=== PATIENT | male | born 1980 | race Caucasian/White ===

== ENCOUNTER 2018-12-27 01:29 | Emergency (ER) | payer SELFPAY ==
--- NOTE | 2018-12-27 01:38 | ERPHSYRPT ---
- History of Present Illness Time Seen by Provider: 12/27/18 01:35 Source: patient Exam Limitations: clinical condition, intoxication Physician History: 38 y/o white male brought into ED for medical clearance for [facility]. pt lost his job and was drinking heavily. pt pulled over by police for driving under the influence. pt denies use of any other mind altering drugs or medications. pt not suicidal or homicidal. pt denies any complaint Timing/Duration: today Severity of Symptoms-Max: mild Severity of Symptoms-Current: mild Context related to: lost job Suicidal thoughts: other (none) Associated Symptoms: depressed, frustrated Previous symptoms: no prior history Allergies/Adverse Reactions: No Known Drug Allergies Allergy (Unverified 12/27/18 01:50) Home Medications: No Reportable Medications [No Reported Medications] 12/27/18 [History] - Past Medical History Neurological History: No Pertinent History ENT History: No Pertinent History Cardiac History: No Pertinent History Respiratory History: No Pertinent History Endocrine Medical History: No Pertinent History Musculoskeletal History: No Pertinent History GI Medical History: No Pertinent History History: No Pertinent History Psycho-Social History: No Pertinent History Male Reproductive Disorders: No Pertinent History - Past Surgical History Neuro Surgical History: No Pertinent History Cardiac: No Pertinent History Respiratory: No Pertinent History Gastrointestinal: No Pertinent History Genitourinary: No Pertinent History Musculoskeletal: No Pertinent History Male Surgical History: No Pertinent History - Review of Systems Constitutional: No Symptoms Eyes: No Symptoms Ears, Nose, & Throat: No Symptoms Respiratory: No Symptoms Cardiac: No Symptoms Abdominal/Gastrointestinal: No Symptoms Genitourinary Symptoms: No Symptoms Musculoskeletal: No Symptoms Skin: No Symptoms Neurological: No Symptoms Psychological: No Symptoms Endocrine: No Symptoms Hematologic/Lymphatic: No Symptoms Immunological/Allergic: No Symptoms All Other Systems: Reviewed and Negative - Nursing Vital Signs Nursing Vital Signs: Initial Vital Signs Temperature 98.9 F 12/27/18 01:34 Pulse Rate 127 H 12/27/18 01:34 Respiratory Rate 17 12/27/18 01:34 Blood Pressure 156/89 12/27/18 01:34 O2 Sat by Pulse Oximetry 96 12/27/18 01:34 Pain Scale Pain Intensity 2 - Physical Exam General Appearance: no apparent distress, alert, anxiety Eyes, Ears, Nose, Throat Exam: normal ENT inspection, moist mucous membranes Neck Exam: normal inspection, non-tender, supple, full range of motion Respiratory Exam: normal breath sounds, lungs clear, No chest tenderness, No respiratory distress Cardiovascular Exam: regular rate/rhythm, normal heart sounds, normal peripheral pulses Gastrointestinal/Abdominal Exam: soft, normal bowel sounds, No tenderness Current Suicidality: denies suicide plan Neurological Exam: alert, normal mood/affect, calm, waterproofer helper II-XII nml as tested, oriented x 3, anxious, depressed affect Appearance: appropriate appearance Behavior/Eye Contact/Speech: alert & cooperative, cooperative, good eye contact , normal speech, intoxicated appearance (mild) Thoughts/Hallucinations: normal thought pattern, no apparent hallucination Skin Exam: normal color, warm, dry SpO2 Interpretation: normal O2 Delivery: Room Air - Progress Progress: unchanged Counseled pt/family regarding: diagnosis - Departure Departure Disposition: Home Clinical Impression: Alcohol intoxication, Medical clearance for incarceration Condition: Stable Critical Care Time: No Referrals: EZIO ZHAO [Primary Care Provider] -
[2018-12-27 01:39] VITALS: BP 156/89; PULSE 127; O2SAT 96
== END 2018-12-27 02:10 | disposition home or self-care (01) ==
LOC: ED 01:29
DX: F10.129 Alcohol abuse with intoxication, unspecified (principal); Z02.89 Encounter for other administrative examinations
CPT/HCPCS: 99283

== ENCOUNTER 2019-02-24 23:28 | Emergency (ER) | payer MEDICAID ==
[2019-02-25] MEDS ORDERED: Ativan 1 MG PO ONE (00:08)
--- NOTE | 2019-02-25 00:10 | ERPHSYRPT ---
- History of Present Illness Time Seen by Provider: 02/25/19 00:01 Source: patient Exam Limitations: no limitations Patient Subjective Stated Complaint: police told this nurse that pt had SI, police stated that pt has had rough year, mother has cancer, girlfriend broke up with him, medical issues with throat and hernia, pt on paxil, pt states that the medication makes him feel jittery, police states that pt had tubing in truck to attach to exhaust, pt states that he lost brother in june and lost job , pt states that he is really depressed Triage Nursing Assessment: pt ambulated into the ER with law enforcment, pt is tearful, pt is hypertensive, pt sent SI text messages to person, pt ETOH, pt Physician History: 39-year-old male with 2 complaints: Increased stress and anxiety long-standing history of not well controlled depression and anxiety, suicide tonight by placing a tube from the muffler into his truck but he sought help with the police prior to putting himself into the vehicle. Patient still feels suicidal due to trouble in his health recently and his family/girlfriend.. He denies homicidal ideation. He did not ingest any substances tonight. He has no medical complaints at this time. He further states he has had 5-6 months of a globus sensation as if someone is pushing into his throat which denied hitting his swallowing or breathing but is uncomfortable. Causes him to cough and gag often. His primary care has told him this is likely anxiety related the the patient states it is a constant sensation on his evaluated at this point. patient further endorses nearly 30 pound unintentional weight loss over the last 5-6 months. No night sweats. No voice changes. No other recent or current medical complaints. PMH: Patient versus a history of depression Social: Patient is a long-time smoker Allergies/Adverse Reactions: No Known Drug Allergies Allergy (Unverified 12/27/18 01:50) Home Medications: Multivitamin [Multivitamins] 1 cap PO DAILY 02/24/19 [History] Paroxetine HCl 30 mg PO DAILY 02/24/19 [History] Hx Tetanus, Diphtheria Vaccination/Date Given: No Hx Influenza Vaccination/Date Given: No Hx Pneumococcal Vaccination/Date Given: No - Review of Systems Constitutional: Weight Loss, No Fever, No Chills Eyes: No Symptoms Ears, Nose, & Throat: No Symptoms, Hoarse, Other (globus sensation) Respiratory: No Cough, No Dyspnea Cardiac: No Chest Pain, No Edema, No Syncope Abdominal/Gastrointestinal: No Abdominal Pain, No Nausea, No Vomiting, No Diarrhea Genitourinary Symptoms: No Dysuria Musculoskeletal: No Back Pain, No Neck Pain Skin: No Rash Neurological: No Dizziness, No Focal Weakness, No Sensory Changes Psychological: Anxiety, Depression, Suicidal Ideations, No Homicidal Ideations, No Hallucinations Endocrine: No Symptoms All Other Systems: Reviewed and Negative - Past Medical History Pertinent Past Medical History: Yes Neurological History: No Pertinent History ENT History: No Pertinent History Cardiac History: Hypertension Respiratory History: No Pertinent History Endocrine Medical History: No Pertinent History Musculoskeletal History: No Pertinent History GI Medical History: Esophageal Disorder, Hernia History: No Pertinent History Psycho-Social History: Anxiety, Depression Male Reproductive Disorders: No Pertinent History - Past Surgical History Past Surgical History: No Neuro Surgical History: No Pertinent History Cardiac: No Pertinent History Respiratory: No Pertinent History Gastrointestinal: No Pertinent History Genitourinary: No Pertinent History Musculoskeletal: No Pertinent History Male Surgical History: No Pertinent History - Social History Smoking Status: Current every day smoker How long have you smoked: 25 yrs Exposure to second hand smoke: Yes Drug Use: none Patient Lives Alone: No - Nursing Vital Signs Nursing Vital Signs: Initial Vital Signs Temperature 98.5 F 02/24/19 23:32 Pulse Rate 123 H 02/24/19 23:32 Respiratory Rate 17 02/24/19 23:32 Blood Pressure 156/96 02/24/19 23:32 O2 Sat by Pulse Oximetry 94 L 02/24/19 23:32 Pain Scale Pain Intensity 0 - Physical Exam General Appearance: no apparent distress, alert Eye Exam: PERRL/EOMI, eyes nml inspection Ears, Nose, Throat Exam: normal ENT inspection, TMs normal, pharynx normal, moist mucous membranes Neck Exam: normal inspection, non-tender, supple, full range of motion Respiratory Exam: normal breath sounds, lungs clear, No respiratory distress Cardiovascular Exam: regular rate/rhythm, normal heart sounds, normal peripheral pulses Gastrointestinal/Abdomen Exam: soft, normal bowel sounds, No tenderness, No mass Back Exam: normal inspection, normal range of motion, No CVA tenderness, No vertebral tenderness Extremity Exam: normal inspection, normal range of motion, pelvis stable Neurologic Exam: alert, oriented x 3, cooperative, normal mood/affect, nml cerebellar function, nml station & gait, sensation nml, No motor deficits Skin Exam: normal color, warm, dry, No rash Lymphatic Exam: No adenopathy SpO2 Interpretation: normal SpO2: 94 O2 Delivery: Room Air Comments: tearful and anxious. Suicidal. 02/25/19 12:05 - CT Exams Soft Tissue Neck CT Interpretation: Negative Ordered Tests: Active Orders 24 hr Category Date Time Status Clean Catch Urine Specimen STAT Care 02/24/19 23:50 Active EKG-ER Only STAT Care 02/24/19 23:50 Active Psychiatric Consult STAT Cons 02/24/19 23:52 Active NECK WO CONTRAST [CT] Stat Exams 02/25/19 00:08 Completed ACETAMINOPHEN Stat Lab 02/24/19 23:51 Completed Alcohol [ETHYL ALCOHOL] Stat Lab 02/24/19 23:51 Completed CBC W DIFF Stat Lab 02/24/19 23:51 Completed CMP Stat Lab 02/24/19 23:51 Completed UA W/RFX UR CULTURE Stat Lab 02/24/19 23:59 Completed Urine Triage Profile Stat Lab 02/24/19 23:59 Completed Medication Summary Discontinued Medications Generic Name Dose Route Start Last Admin Trade Name Freq PRN Reason Stop Dose Admin Lorazepam 1 mg 02/25/19 00:08 02/25/19 00:20 Ativan 1 Mg PO 02/25/19 00:09 1 mg STAT ONE Administration Lorazepam Confirm 02/25/19 00:17 Ativan 1 Mg Administered 02/25/19 00:18 Dose 1 mg .ROUTE .[facility] ONE Lab/Rad Data: Laboratory Result Diagrams 02/24/19 23:51 02/24/19 23:51 Laboratory Results 02/24/19 02/24/19 02/24/19 Range/Units 23:59 23:59 23:51 WBC (4.0-10.5) K/mm3 RBC (4.1-5.6) M/mm3 Hgb (12.5-18.0) gm/dl Hct (42-50) % MCV (78-100) fl MCH (26-32) pg MCHC (32-36) g/dl RDW (11.5-14.0) % Plt Count (150-450) K/mm3 MPV (6-9.5) fl Gran % (36.0-66.0) % Eos # (Auto) (0-0.5) Absolute Lymphs (auto) (1.0-4.6) Absolute Monos (auto) (0.0-1.3) Lymphocytes % (24.0-44.0) % Monocytes % (0.0-12.0) % Eosinophils % (0.00-5.0) % Basophils % (0.0-0.4) % Absolute Granulocytes (1.4-6.9) Basophils # (0-0.4) Sodium 139 (137-145) mmol/L Potassium 3.7 (3.5-5.1) mmol/L Chloride 105 (98-107) mmol/L Carbon Dioxide 23 (22-30) mmol/L Anion Gap 14.8 (5-15) MEQ/L BUN 6 L (9-20) mg/dL Creatinine 0.89 (0.66-1.25) mg/dL Estimated GFR > 60.0 ML/MIN Glucose 92 (74-106) mg/dL Calcium 9.5 (8.4-10.2) mg/dL Total Bilirubin 0.40 (0.2-1.3) mg/dL AST 24 (17-59) U/L ALT 12 (0-50) U/L Alkaline Phosphatase 71 (38-126) U/L Serum Total Protein 7.5 (6.3-8.2) g/dL Albumin 4.3 (3.5-5.0) g/dL Urine Color COLORLESS (YELLOW) Urine Appearance CLEAR (CLEAR) Urine pH 7.0 (5-6) Ur Specific [place] 1.003 (1.005-1.025) Urine Protein NEGATIVE (Negative) Urine Ketones NEGATIVE (NEGATIVE) Urine Blood NEGATIVE (0-5) [place]/ul Urine Nitrite NEGATIVE (NEGATIVE) Urine Bilirubin NEGATIVE (NEGATIVE) Urine Urobilinogen NEGATIVE (0-1) mg/dL Ur Leukocyte Esterase NEGATIVE (NEGATIVE) Urine WBC (Auto) NONE (0-5) /HPF Urine RBC (Auto) NONE (0-2) /HPF U Epithel Cells (Auto) NONE (FEW) /HPF Urine Bacteria (Auto) NONE (NEGATIVE) /HPF Urine Culture Reflexed NO (NO) Urine Glucose NEGATIVE (NEGATIVE) mg/dL Urine Opiates Level NEGATIVE (NEGATIVE) Ur Methadone NEGATIVE (NEGATIVE) Acetaminophen < 10 L (10-30) ug/ml Urine Barbiturates NEGATIVE (NEGATIVE) Ur Phencyclidine (PCP) NEGATIVE (NEGATIVE) Urine Amphetamine NEGATIVE (NEGATIVE) U Benzodiazepine Level NEGATIVE (NEGATIVE) Urine Cocaine NEGATIVE (NEGATIVE) Urine Marijuana (THC) NEGATIVE (NEGATIVE) Ethyl Alcohol 62 H (0-10) mg/dL 02/24/19 Range/Units 23:51 WBC 10.4 (4.0-10.5) K/mm3 RBC 5.28 (4.1-5.6) M/mm3 Hgb 16.8 (12.5-18.0) gm/dl Hct 48.5 (42-50) % MCV 91.9 (78-100) fl MCH 31.8 (26-32) pg MCHC 34.6 (32-36) g/dl RDW 13.6 (11.5-14.0) % Plt Count 285 (150-450) K/mm3 MPV 8.8 (6-9.5) fl Gran % 73.9 H (36.0-66.0) % Eos # (Auto) 0.07 (0-0.5) Absolute Lymphs (auto) 2.07 (1.0-4.6) Absolute Monos (auto) 0.53 (0.0-1.3) Lymphocytes % 19.9 L (24.0-44.0) % Monocytes % 5.1 (0.0-12.0) % Eosinophils % 0.7 (0.00-5.0) % Basophils % 0.4 (0.0-0.4) % Absolute Granulocytes 7.67 H (1.4-6.9) Basophils # 0.04 (0-0.4) Sodium (137-145) mmol/L Potassium (3.5-5.1) mmol/L Chloride (98-107) mmol/L Carbon Dioxide (22-30) mmol/L Anion Gap (5-15) MEQ/L BUN (9-20) mg/dL Creatinine (0.66-1.25) mg/dL Estimated GFR ML/MIN Glucose (74-106) mg/dL Calcium (8.4-10.2) mg/dL Total Bilirubin (0.2-1.3) mg/dL AST (17-59) U/L ALT (0-50) U/L Alkaline Phosphatase (38-126) U/L Serum Total Protein (6.3-8.2) g/dL Albumin (3.5-5.0) g/dL Urine Color (YELLOW) Urine Appearance (CLEAR) Urine pH (5-6) Ur Specific [place] (1.005-1.025) Urine Protein (Negative) Urine Ketones (NEGATIVE) Urine Blood (0-5) [place]/ul Urine Nitrite (NEGATIVE) Urine Bilirubin (NEGATIVE) Urine Urobilinogen (0-1) mg/dL Ur Leukocyte Esterase (NEGATIVE) Urine WBC (Auto) (0-5) /HPF Urine RBC (Auto) (0-2) /HPF U Epithel Cells (Auto) (FEW) /HPF Urine Bacteria (Auto) (NEGATIVE) /HPF Urine Culture Reflexed (NO) Urine Glucose (NEGATIVE) mg/dL Urine Opiates Level (NEGATIVE) Ur Methadone (NEGATIVE) Acetaminophen (10-30) ug/ml Urine Barbiturates (NEGATIVE) Ur Phencyclidine (PCP) (NEGATIVE) Urine Amphetamine (NEGATIVE) U Benzodiazepine Level (NEGATIVE) Urine Cocaine (NEGATIVE) Urine Marijuana (THC) (NEGATIVE) Ethyl Alcohol (0-10) mg/dL - Progress Progress: unchanged Progress Note: CT obtained history of weight loss and globus sensation in a long-time smoker, no evidence of mass/malignancy or other emergent findings. Patient remained suicidal/depressed feeling better after Ativan. Will be placed in a psychiatric facility. No evidence of psychosis or evidence of ingestion in regard to his attempt earlier. Patient remained hemodynamically stable during his time in the emergency department. 02/25/19 12:06 - Departure Departure Disposition: Transfer Clinical Impression: Suicidal thoughts, Anxiety Condition: Stable Critical Care Time: No Referrals: EZIO ZHAO [Primary Care Provider] -
[2019-02-25] MEDS ORDERED: Ativan 1 MG ONE (00:17)
[2019-02-25 00:52] LABS: Appearance CLEAR (CLEAR); Bilirubin NEGATIVE (NEGATIVE); Blood NEGATIVE Ery/ul (0-5); Glucose NEGATIVE (NEGATIVE); Ketones NEGATIVE (NEGATIVE); Leukocyte Esterase NEGATIVE (NEGATIVE); Nitrite NEGATIVE (NEGATIVE); Protein,Urine Dip NEGATIVE (Negative); Specific Gravity 1.003 (1.005-1.025); Urobilinogen NEGATIVE mg/dL (0-1)
[2019-02-25 01:06] LABS: Amphetamine,Urine NEGATIVE (NEGATIVE); Barbiturate,Urine NEGATIVE (NEGATIVE); Benzodiazepine,Urine NEGATIVE (NEGATIVE); Cocaine,Urine NEGATIVE (NEGATIVE); Methadone,Urine NEGATIVE (NEGATIVE); Opiate,Urine NEGATIVE (NEGATIVE); PCP,Urine NEGATIVE (NEGATIVE); THC,Urine NEGATIVE (NEGATIVE)
[2019-02-25 01:10] LABS: Absolute Neutrophil Ct (ANC) 7.67 (1.4-6.9); BASOPHIL % 0.4 % (0.0-0.4); Basophil (Absolute #) 0.04 (0-0.4); Eosinophil % 0.7 % (0.00-5.0); Eosinophil (Absolute #) 0.07 (0-0.5); Hematocrit 48.5 % (42-50); Hemoglobin 16.8 gm/dl (12.5-18.0); Lymphocyte (Absolute #) 2.07 (1.0-4.6); Lymphocytes % 19.9 % (24.0-44.0); Mean Cell Volume 91.9 fl (78-100); Mean Corpuscular Hemoglobin 31.8 pg (26-32); Mean Corpuscular Hgb Concent. 34.6 g/dl (32-36); Mean Platelet Volume 8.8 fl (6-9.5); Monocyte (Absolute #) 0.53 (0.0-1.3); Monocytes % 5.1 % (0.0-12.0); Neutrophil % 73.9 % (36.0-66.0); Platelet Count 285 K/mm3 (150-450); Red Blood Count 5.28 M/mm3 (4.1-5.6); Red Cell Distribution Width 13.6 % (11.5-14.0); White Blood Count 10.4 K/mm3 (4.0-10.5)
[2019-02-25 01:27] LABS: ALBUMIN 4.3 g/dL (3.5-5.0); ALKALINE PHOSPHATASE 71 U/L (38-126); ANION GAP 14.8 MEQ/L (5-15); BLOOD UREA NITROGEN 6 mg/dL (9-20); CHLORIDE 105 mmol/L (98-107); Calcium 9.5 mg/dL (8.4-10.2); Carbon Dioxide 23 mmol/L (22-30); Creatinine 1 0.89 mg/dL (0.66-1.25); ETHYL ALCOHOL 62 mg/dL (0-10); Glucose 92 mg/dL (74-106); Potassium 3.7 mmol/L (3.5-5.1); SGOT/AST 24 U/L (17-59); SGPT/ALT 12 U/L (0-50); SODIUM 139 mmol/L (137-145); Total Protein 7.5 g/dL (6.3-8.2)
[2019-02-25 01:28] LABS: ACETAMINOPHEN < 10 ug/ml (10-30)
[2019-02-25 04:54] VITALS: BP 138/95; PULSE 98
--- NOTE | 2019-02-25 09:44 | XRAY ---
Indication: Dysphasia/difficulty swallowing 5-6 months. Globus sensation in throat. Multiple contiguous axial images obtained through the neck without contrast as ordered. Comparison: None Supra and infraglottic airway appears widely patent. Normal epiglottis. Major arteries and veins are normal in course and caliber. Thyroid gland homogeneous. Small subcentimeter cervical lymph nodes bilaterally, none pathologically enlarged. Parotid and submandibular glands are bilaterally symmetric. Cervical spine intact with minimal C5-C7 degenerative changes. Base of the brain and lung apices are unremarkable. Impression: Minimal C5-C7 degenerative changes. Negative CT neck without contrast exam. Comment: Preliminary interpretation was made by [facility]. No critical discrepancy. CTDI 18.24
[2019-02-25 12:09] VITALS: O2SAT 94
== END 2019-02-25 04:55 | disposition short-term general hospital (02) ==
LOC: ED 23:28
DX: R45.851 Suicidal ideations (principal); F41.9 Anxiety disorder, unspecified
CPT/HCPCS: 36415; 70490; 80053; 80307; 81001; 85025; 93005; 99285; G0481; A9270-GY; G0480

== ENCOUNTER 2019-05-04 12:20 | Day surgery (SDC) | payer MEDICAID, OTHER ==
--- NOTE | 2019-05-04 09:08 | HP ---
DATE OF SURGERY: 05/04/2019 HISTORY OF PRESENT ILLNESS: The patient is a 39 year-old with epigastric ventral cephalad to naval area hernia, past couple of years increasing in size, increasing aches. It was felt he had some incarcerated preperitoneal fat or omentum. I feel he would benefit from repair given frequent symptoms and increase in size. PAST MEDICAL HISTORY: Includes anxiety. PAST SURGICAL HISTORY: He denied any prior abdominal surgery. MEDICATIONS: Mupirocin topical ointment. Melatonin. Paxil. Seroquel. ALLERGIES: NKDA. FAMILY HISTORY: Colon cancer, heart disease. SOCIAL HISTORY: One and a half pack per day smoker, does drink some alcohol but denies abuse. REVIEW OF SYSTEMS: Fourteen systems reviewed per admission assessment. No chest pain or palpitations other systems negative or noncontributory as above and per preadmission questionnaire. PHYSICAL EXAMINATION: GENERAL: No acute distress. HEENT: Sclerae nonicteric. NECK: No JVD. CHEST: Equal excursion, nonlabored breathing. CVS: Regular rate and rhythm. ABDOMEN: Soft. His hernia appears to be in the lower epigastrium and does not appear to be a simple umbilical hernia. It appears to be an incarcerated epigastric hernia with likely some preperitoneal omental fat. No peritoneal signs. EXTREMITIES: No significant edema. NEURO: Alert, oriented, moving extremities symmetrically. No gross motor deficits noted. IMPRESSION: Incarcerated epigastric ventral hernia. I feel the patient will benefit from repair. 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 He understands and accepts these risks of use of the mesh to decrease the overall risk of recurrence and ending up back in the operating room. There is a small risk with mesh but generally the benefits outweigh the risk. He understands all the above. General risk of anesthesia, deep venous thrombosis, pulmonary embolism, pneumonia but not limited to, as well as risk of hernia recurrence, possibility of no improvement in the current aches and pains, possibly new aches and pains from the surgery itself. He understands and agrees to the planned procedure and will proceed with laparoscopic repair of incarcerated ventral hernia with mesh possible open. Depending on perioperative pain whether the patient will be able to be discharged home or need to stay.
[~2019-05-04 12:20] MED LIST: CEFAZOLIN 2 GM-D5W BAG** 2 GM/50 ML ML IV ONE; Lactated Ringers 1,000 ML IV ONE; Lactated Ringers 1,000 ML IV SCH; Sensorcaine 0.25% 10 ML ONE
[2019-05-04] MEDS ORDERED: CEFAZOLIN 2 GM-D5W BAG** 2 GM/50 ML ML IV ONE (12:29)
[2019-05-04] MEDS ORDERED: Lactated Ringers 1,000 ML IV ONE ×2 (12:29→14:56)
[2019-05-04] MEDS ORDERED: SUBLIMAZE 100 MCG/2 ML ONE ×2 (13:37→15:35)
[2019-05-04] MEDS ORDERED: Zemuron 100 MG/10 ML ONE ×2 (13:37→14:56)
[2019-05-04] MEDS ORDERED: DIPRIVAN 200 MG/20 ML IV ONE (13:37)
[2019-05-04] MEDS ORDERED: Quelicin Fliptop 200 MG/10 ML ONE (13:37)
[2019-05-04] MEDS ORDERED: TORAdol 30 mg Injection ONE (14:25)
[2019-05-04] MEDS ORDERED: BRIDION 200MG/2ML IV ONE (14:25)
[2019-05-04] MEDS ORDERED: Zofran 4 MG/2 ML VIAL ONE (14:25)
[2019-05-04] MEDS ORDERED: Decadron 4 MG INJ ONE ×2 (14:25→14:57)
[2019-05-04] MEDS ORDERED: Ephedrine Sulfate 50 MG/ML ONE (14:30)
[2019-05-04] MEDS ORDERED: Xylocaine-Mpf 2% 5 Ml Vial ONE (14:57)
[2019-05-04] MEDS ORDERED: Naropin 0.5% 30 ML VIAL ONE (14:57)
[2019-05-04] MEDS ORDERED: DILAUDID 2 MG INJECTION ONE (15:20)
[2019-05-04 15:24] LABS: Appearance CLEAR (CLEAR); Bacteria RARE /HPF (NEGATIVE); Bilirubin NEGATIVE (NEGATIVE); Blood NEGATIVE Ery/ul (0-5); Epithelial Cells FEW /HPF (FEW); Glucose NEGATIVE (NEGATIVE); Ketones NEGATIVE (NEGATIVE); Leukocyte Esterase NEGATIVE (NEGATIVE); Mucus SLIGHT /HPF (NEGATIVE); Nitrite NEGATIVE (NEGATIVE); Protein,Urine Dip NEGATIVE (Negative); Specific Gravity 1.014 (1.005-1.025); Urobilinogen NEGATIVE mg/dL (0-1)
[2019-05-04 16:36] VITALS: BP 150/89; PULSE 97; O2SAT 95
--- NOTE | 2019-05-05 12:25 | OP ---
SURGERY DATE/TIME: 05/04/2019 1359 PREOPERATIVE DIAGNOSIS: Lower epigastric incarcerated ventral hernia symptomatic. POSTOPERATIVE DIAGNOSIS: Lower epigastric incarcerated ventral hernia symptomatic. PROCEDURE: Laparoscopic repair of incarcerated ventral hernia with mesh. SURGEON: Dr. Alessio Pabon. ANESTHESIA: General. ESTIMATED BLOOD LOSS: Minimal. INDICATIONS: As noted above. Risks and benefits explained in detail and not limited to and consent obtained. DESCRIPTION OF PROCEDURE AND FINDINGS: The patient is taken to the operating room. General anesthesia induced. The site was confirmed with the patient in the preoperative holding area. His abdomen was prepped and draped in usual sterile fashion after official time out and no disagreement with planned procedure. A transverse incision made supraumbilical area. Fascia grasped pulled upward. Veress needle inserted and tested with saline. Pneumoperitoneum accomplished. Opening pressure 0-15. Once this was accomplished a 5 mm bladeless port and camera were inserted without difficulty in the left upper quadrant. A 5 mm right mid abdomen port, 5 mm left lower quadrant port and later a right mid 5 mm port was placed. There was no evidence of any intra-abdominal injury secondary to trocar insertion. The patient had a lot intra-abdominal fat. Carefully incising the preperitoneal fat on peritoneal plane, dissection carried in the preperitoneal space superior to the hernia defect and inferior. Careful dissection was accomplished slowly and carefully the large amount of preperitoneal fat that was incarcerated up in this hernia was slowly carefully reduced away from the patient's subcutaneous tissue and skin area this took some time but he had two ventral hernias adjacent to each other low epigastrium and a little smaller one down by the naval. It was felt these should be repaired en bloc together. The site was carefully marked size agustin felt to be 8 cm. Ventralex XT was the most appropriate size with adequate overlap over the defect minimizing excess mesh, risk of mesh aches and pains. Four quadrant stay sutures were placed with 0 Ethibond. 0 Vicryl placed in the middle. The strap had been removed. At this point the small lower epigastrium incision the suture passer is used to place 0 Ethibond transfascial suture this followed by placing a port through the center of the defect which allowed the mesh to be rolled and passed down easily without difficulty. The port was removed. The fascial edges were brought back together with 0 PDS in a tension-free manner. Once this was accomplished the Ventral XT 8 mesh was carefully pulled up in the center of the defect with [address]. This is centered and the four quadrant the four separate little stab wounds the 0 Ethibond was transfixed transfascially with the aid of suture passer. The sutures were then pulled through the fascia and tied. The mesh was nice and flat fashion. At this point the capture tacker was used to tack circumferentially around about 1 cm apart to minimize risk of seroma formation, two extra tacks were placed centrally closer to the fascial defect. The edges of the mesh lying nice and flat in tension-free fashion. Good hemostasis noted. It should be noted that all the mesh measuring placement of transfascial sutures of mesh placed and this was all done with pressure having been turned down to 8 to minimize distortion of the abdominal wall. At this point the preperitoneal fat pad had been allowed to fall back up underneath the mesh isolating it further away from the viscera. Once this is accomplished the pneumoperitoneum decompressed. Ports removed. Skin incisions closed with 4-0 Vicryl. Steri-Strips and sterile dressing applied. Anesthesia planned doing a tap blocks at the end of the procedure. Give an abdominal binder and sterile dressing. Some 0.25% Marcaine local had been injected along the skin incision. The patient tolerated the procedure well. There were no immediate complications. Findings were discussed with the family out in the waiting area. He will be transferred to the recovery room in stable condition. Given the size of the mesh he likely will be able to go home. If he is safe for pain control let us know otherwise avoid heavy lifting for the next six weeks. Discharged home in good condition to follow up in the office in a week. Ice pack, ibuprofen, as well as [place] script PRN pain. Diet as tolerated.
== END 2019-05-04 16:50 | disposition home or self-care (01) ==
LOC: SDC 12:20
PROVIDERS: ATTEND Surgery
DX: K43.6 Other and unspecified ventral hernia with obstruction, without gangrene (principal)
CPT/HCPCS: 64488; 76937; 76942; 81001; 87086; J0330; J0690; J1100; J1170; J1885; J2405; J2704; J2795; J3010; L0625

== ENCOUNTER 2020-05-09 12:18 | Emergency (ER) | payer OTHER ==
[2020-05-09] MEDS ORDERED: XYLOCAINE 1% HCL 20 ML MDV ONE (12:26)
[2020-05-09] MEDS ORDERED: Sodium Chloride 0.9% 100 ML IVPB 0 ML IV ONE (12:30)
[2020-05-09] MEDS ORDERED: TERBUTALINE 5 MG PO ONE (12:50)
--- NOTE | 2020-05-09 12:50 | ERPHSYRPT ---
- History of Present Illness Time Seen by Provider: 05/09/20 12:45 Exam Limitations: no limitations Patient Subjective Stated Complaint: pt here for an erection since 0810 this morning , Triage Nursing Assessment: pt alert, resp easy,face mask in place, skin w/d/p, has erection, deneis any penile drainage, Physician History: The patient is a 40-year-old male who presents with a chief complaint of a priapism. He reportedly awoke around 8:00 this morning with the priapism and he has not had detumescence since. He denies any difficulty urinating and was waiting that at home but when the priapism would not resolve he decided to come to the emergency department for further evaluation and management. He denies prior episodes of priapism, hematologic malignancy, any recent trauma, fever or chills. He denies using any erectile dysfunction drugs. Of note, the patient does have a history of anxiety and depression and reportedly has started some antianxiety and depression medications over the last 2 to 3 months. It appears she was prescribed trazodone 100 mg nightly on April 07, 2019. It also. He was prescribed quetiapine 100 mg nightly on April 07 2019. He was prescribed Ingrezza about a month ago which he has been taking daily. Allergies/Adverse Reactions: No Known Drug Allergies Allergy (Verified 05/04/19 12:46) Home Medications: Melatonin 20 mg PO HS 04/07/19 [History] Quetiapine Fumarate 100 mg [Seroquel 100 MG] 100 mg PO HS 04/07/19 [History] Trazodone HCl 100 mg PO HS 04/07/19 [History] Benztropine Mesylate 1 ea DAILY 05/09/20 [History] Olopatadine HCl Ophth [Patanol 1% OPHTHALMIC] 5 ml OP DAILY 05/09/20 [History] Propranolol HCl 1 ea DAILY 05/09/20 [History] Valbenazine Tosylate [Ingrezza] 1 ea DAILY 05/09/20 [History] Valbenazine Tosylate [Ingrezza] 1 ea DAILY 05/09/20 [History] Hx Tetanus, Diphtheria Vaccination/Date Given: No Hx Influenza Vaccination/Date Given: No Hx Pneumococcal Vaccination/Date Given: No Immunizations Up to Date: Yes Travel Risk - International Travel Have you traveled outside of the country in past 3 weeks: No - Coronavirus Screening Are you exhibiting any of the following symptoms?: No Close contact with a COVID-19 positive Pt in past 14-21 Days: No - Review of Systems Genitourinary Symptoms: Other (Priapism) - Past Medical History Pertinent Past Medical History: Yes Neurological History: No Pertinent History ENT History: No Pertinent History Cardiac History: No Pertinent History Respiratory History: No Pertinent History Endocrine Medical History: No Pertinent History Musculoskeletal History: No Pertinent History GI Medical History: Esophageal Disorder History: No Pertinent History Psycho-Social History: Anxiety, Depression Male Reproductive Disorders: No Pertinent History Other Medical History: states is seen for counseling center manager at the [facility] for depression - Past Surgical History Past Surgical History: No Neuro Surgical History: No Pertinent History Cardiac: No Pertinent History Respiratory: No Pertinent History Gastrointestinal: No Pertinent History Genitourinary: No Pertinent History Musculoskeletal: No Pertinent History Male Surgical History: No Pertinent History Other Surgical History: states " had tubes in my ears as a young child" - Social History Smoking Status: Current every day smoker How long have you smoked: 25 yrs Exposure to second hand smoke: Yes Drug Use: none Patient Lives Alone: No - Nursing Vital Signs Nursing Vital Signs: Initial Vital Signs Temperature 97.6 F 05/09/20 12:22 Pulse Rate 102 H 05/09/20 12:22 Respiratory Rate 18 05/09/20 12:22 Blood Pressure 172/112 05/09/20 12:22 O2 Sat by Pulse Oximetry 97 05/09/20 12:22 Pain Scale Pain Intensity 9 - Physical Exam General Appearance: no apparent distress, alert Eye Exam: PERRL/EOMI Neck Exam: normal inspection Respiratory Exam: normal breath sounds Cardiovascular Exam: regular rate/rhythm, normal heart sounds, normal peripheral pulses, capillary refill <2 sec, No murmur, No friction rub, No gallop Gastrointestinal/Abdomen Exam: soft, No tenderness, No distention, No mass, No guarding Male Genitalia Exam: priapism, No hernia, No testicular tenderness, No testicular mass, No penile lesion, No penile discharge Rectal Exam: deferred Back Exam: normal inspection Extremity Exam: normal inspection Neurologic Exam: alert, oriented x 3, normal mood/affect Skin Exam: normal color, warm, dry, No rash, No petechiae SpO2 Interpretation: normal Procedures - Additional Procedures Progress: Dorsal penile block Priapism management - Course Nursing assessment & vital signs reviewed: Yes Ordered Tests: Medication Summary Discontinued Medications Generic Name Dose Route Start Last Admin Trade Name Zaynab PRN Reason Stop Dose Admin Sodium Chloride Confirm 05/09/20 12:30 Sodium Chloride 0.9% 100 Ml Ivpb Administered 05/09/20 12:31 Dose 100 mls @ ud IV .STK-MED ONE Lidocaine HCl Confirm 05/09/20 12:26 Xylocaine 1% Hcl 20 Ml Mdv Administered 05/09/20 12:27 Dose 10 ml .ROUTE .STK-MED ONE Terbutaline Sulfate 5 mg 05/09/20 12:50 05/09/20 13:15 Brethine 5 Mg PO 05/09/20 12:51 5 mg STAT ONE Administration - Progress Progress: improved Progress Note: 05/09/20 13:25 Dorsal penile block was performed using 2 mL injected to the 10:00 and 2:00 of the base of the penile shaft in a standard fashion using aseptic technique. The patient also already received oral terbutaline, 5 mg and if this does not work in the next 30 minutes we will go ahead and start injecting aliquots of phenylephrine to hopefully achieve detumescence 05/09/20 13:42 The patient was reassessed to find that his priapism has not resolved however he achieved adequate anesthesia with the dorsal penile block. 1 ml of Diluted phenylephrine ([id number]) injected at the 2:00 region in an attempt to obtain detumescence using the minimal invasive technique. I reassess at 2:00 pm and repeat 2 additional times if needed before proceeding to aspiration and irrigation with phenylephrine. 05/09/20 14:10 A second aliquot of phenylephrine has been administered to the 10:00 region of the base of the penis. Reassessed at 230 to see if he is achieved detumescence but this time I decided to go ahead with aspiration and injection of phenylephrine has the next step. 05/09/20 14:30 The patient is reassessed and detumescence was achieved. I am currently checking a nurse to wrap the patient's penis with cleaning and will consult urology. 05/09/20 14:42 Urology is being called for consulted now. 05/09/20 14:[address] Ram, urologist, and discussed the case with him. He agreed with management and f/u has been scheduled for 05/13/20 at 1:30 pm 05/09/20 17:09 Discussed with : Other (Yo) Counseled pt/family regarding: lab results, diagnosis, need for follow-up - Departure Departure Disposition: Home Clinical Impression: Priapism, drug-induced Condition: Stable Critical Care Time: No Referrals: FRANK RAM [COURTESY STAFF] - Instructions: Priapism Additional Instructions: Please follow-up with Dr. Ram, urologist, this coming 05/13/20 at 1:30 pm. Please refrain from taking your ingrezza and seroquel (quetiapine) until told otherwise by the urologist or your PCP/counselor.
[2020-05-09 15:01] VITALS: BP 166/101; PULSE 115; O2SAT 95
== END 2020-05-09 15:03 | disposition home or self-care (01) ==
LOC: ED 12:18
DX: N48.33 Priapism, drug-induced (principal)
CPT/HCPCS: 99283; A9270-GY

== ENCOUNTER 2020-07-05 05:46 | Day surgery (SDC) | payer OTHER ==
[2020-07-05] MEDS ORDERED: Lactated Ringers 1,000 ML IV SCH (06:30)
[2020-07-05] MEDS ORDERED: DIPRIVAN 200 MG/20 ML IV ONE ×2 (07:32→07:51)
[2020-07-05] MEDS ORDERED: Xylocaine-Mpf 2% 5 Ml Vial ONE (07:32)
[2020-07-05] MEDS ORDERED: Lactated Ringers 1,000 ML IV ONE (08:08)
[2020-07-05 08:44] VITALS: O2SAT 99
[2020-07-05 08:51] VITALS: BP 117/79; PULSE 82
--- NOTE | 2020-07-05 10:55 | OP ---
SURGERY DATE/TIME: 07/05/2020 0731 PREOPERATIVE DIAGNOSIS: Rectal bleeding and mother with history of colon cancer. POSTOPERATIVE DIAGNOSIS: Small polyps in the transverse colon. PROCEDURE: Colonoscopy with cold forceps biopsy. SURGEON: Dr. Acevedo. ANESTHESIA: MAC. Medications given by anesthesia department. HISTORY: The patient is a 40 year-old white male patient who reports he has been having problems with rectal bleeding off and on for the past two years. The patient has a mother who had colon cancer and is felt to need to have endoscopic evaluation. The patient was appraised of the risks of the procedure including the risk of perforation, phlebitis, untoward reaction to medication, bleeding and missed lesions. The patient verbalized his understanding and desired to have the procedure performed. DESCRIPTION OF PROCEDURE: The patient was given the medications by the anesthesia department. He had continuous pulse oximetry, ECG monitoring, intermittent blood pressure monitoring and tidal CO2 monitoring during the examination. He was placed in the left lateral decubitus position. A digital rectal examination was performed and revealed normal anal sphincter tone, no masses. Internal hemorrhoids were noted. The prostate was felt to be normal. The flexible Olympus pediatric colonoscope was used to intubate the rectum. A view of the colon was developed sequentially to the cecum including a distance into the terminal ileum. Biopsies were obtained in the terminal ileum to rule out inflammatory bowel disease. There were also noted to be two small polyps in the transverse colon and these were biopsied and destroyed using cold biopsy technique to destroy the lesions. Upon insertion and withdrawal, including a retroflex view in the rectum, there was otherwise noted internal hemorrhoids which were not actively bleeding but no other mucosal lesions being encountered the scope was removed from the patient who tolerated the procedure well and sent back to OP recovery in good condition. The prep was noted to be good.
== END 2020-07-05 08:50 | disposition home or self-care (01) ==
LOC: SDC 05:46
PROVIDERS: ATTEND Family Medicine
DX: D12.3 Benign neoplasm of transverse colon (principal); Z80.0 Family history of malignant neoplasm of digestive organs; K64.8 Other hemorrhoids; K62.5 Hemorrhage of anus and rectum
CPT/HCPCS: J2704

== ENCOUNTER 2020-08-22 09:57 | Emergency (ER) | payer OTHER ==
[2020-08-22] MEDS ORDERED: Ketamine HCl 50 MG/ML IV ONE (09:58)
[2020-08-22] MEDS ORDERED: Zemuron 100 MG/10 ML IV ONE (09:58)
--- NOTE | 2020-08-22 10:11 | ERPHSYRPT ---
- History of Present Illness Time Seen by Provider: 08/22/20 10:00 Source: EMS Exam Limitations: intoxication Physician History: Patient is a 40-year-old male presents to our ED via EMS for evaluation of altered mental status. Patient lives alone. Patient's mother had not heard from him and several days. She went to check up on him this morning and found him unresponsive. There were empty alcohol containers and empty pill bottles near patient. Per report patient has a history of suicide attempt in the past. Patient has been feeling somewhat depressed. Patient unable to provide to this HPI. Patient breathing spontaneously. Patient has dried blood around his mouth. Mildly dry oral mucous membranes. Patient is sleeping and snoring. Patient appears to be protecting his airway. No signs of trauma. Patient is currently mildly hypothermic. Timing/Duration: today Severity: moderate Modifying Factors: Improves With: nothing Allergies/Adverse Reactions: No Known Drug Allergies Allergy (Verified 08/22/20 10:20) Home Medications: Valbenazine Tosylate [Ingrezza] 1 ea PO DAILY 05/09/20 [History] Fluoxetine HCl 20 mg [Prozac 20 MG] 1 ea DAILY 08/22/20 [History] Ziprasidone HCl [Geodon] 1 ea DAILY 08/22/20 [History] Hx Tetanus, Diphtheria Vaccination/Date Given: No Hx Influenza Vaccination/Date Given: No Hx Pneumococcal Vaccination/Date Given: No - Review of Systems All Other Systems: Unable due to condition - Past Medical History Pertinent Past Medical History: Yes Neurological History: No Pertinent History ENT History: No Pertinent History Cardiac History: Hypertension Respiratory History: No Pertinent History Endocrine Medical History: No Pertinent History Musculoskeletal History: No Pertinent History GI Medical History: Esophageal Disorder History: No Pertinent History Psycho-Social History: Anxiety, Depression Male Reproductive Disorders: No Pertinent History Other Medical History: states is seen for safety counselor at the [facility] for depression - Past Surgical History Past Surgical History: Yes Neuro Surgical History: No Pertinent History Cardiac: No Pertinent History Respiratory: No Pertinent History Gastrointestinal: Hernia Repair Genitourinary: No Pertinent History Musculoskeletal: No Pertinent History Male Surgical History: No Pertinent History Other Surgical History: states " had tubes in my ears as a young child" - Social History Smoking Status: Current every day smoker How long have you smoked: 25 yrs Exposure to second hand smoke: Yes Drug Use: none Patient Lives Alone: No - Nursing Vital Signs Nursing Vital Signs: Initial Vital Signs Temperature 95.4 F 08/22/20 09:58 Pulse Rate 121 H 08/22/20 09:58 Respiratory Rate 16 08/22/20 09:58 Blood Pressure 156/91 08/22/20 09:58 O2 Sat by Pulse Oximetry 96 08/22/20 09:58 Pain Scale Pain Intensity 0 - Physical Exam General Appearance: other (Patient lying in bed breathing spontaneously. Dried blood around his mouth. Patient responds to sternal rub. He appears to be protecting his airway.) Eye Exam: PERRL/EOMI Ears, Nose, Throat Exam: normal ENT inspection, pharynx normal, dry mucous m embranes, other (Dry appearing mucous membranes.) Neck Exam: normal inspection (No obvious signs of trauma. No contusions or abrasions. No lacerations.) Respiratory Exam: lungs clear, airway intact, No chest tenderness, No respiratory distress, No accessory muscle use, No wheezing, No stridor Cardiovascular Exam: normal heart sounds (Sinus tachycardia.), normal peripheral pulses, other Gastrointestinal/Abdomen Exam: soft, No tenderness, No distention, No guarding, No ecchymosis, No hepatomegaly, No organomegaly Male Genitalia Exam: normal genitalia Back Exam: normal inspection Extremity Exam: normal inspection, normal range of motion, pelvis stable Neurologic Exam: uncooperative, intoxicated appearance, other (Patient appears to be intoxicated. He is sleeping but responds to tactile stimulation.), No facial droop SpO2 Interpretation: normal O2 Delivery: Room Air Procedures - Intubation Intubation Indications: respiratory distress Tube Size (cm): 8.0 Medications: Ketamine, Rocuronium C-Spine: maintained Endotracheal Tube Confirmation: bilateral breath sounds, positive end tidal CO2, good rise & fall of chest, stable or inc of O2 sat Intubation Complications: no complications Performed By: ED Physician Post Intubation Xray: Yes Progress/X-ray Impression: 08/22/20 12:54 tube in good position. no pneumothorax. - Course Nursing assessment & vital signs reviewed: Yes EKG Interpreted by Me: RATE (120), Sinus Rhythm, NORMAL AXIS, NORMAL INTERVALS - Radiology Exams Chest X-ray Interpretation: Teleradiologist Report (Normal heart lungs and bony thorax. Incidental calcified granulomas) - CT Exams Head CT Interpretation: Tele-radiologist Report (Motion artifact. No acute intrac ranial abnormality observed) Cervical Spine CT Interpretation: Tele-radiologist Report (Artifact, no fractures or subluxations. C5-C7 degenerative arthritis) Ordered Tests: Active Orders 24 hr Category Date Time Status EKG-ER Only STAT Care 08/22/20 10:03 Active IV Insertion STAT Care 08/22/20 10:03 Active CERVICAL SPINE WO CONTRAST [CT] Stat Exams 08/22/20 10:02 Completed CHEST 1 VIEW (PORTABLE) Stat Exams 08/22/20 10:03 Completed CHEST 1 VIEW (PORTABLE) Stat Exams 08/22/20 12:33 Completed CHEST 1 VIEW (PORTABLE) Stat Exams 08/22/20 12:39 Completed HEAD WITHOUT CONTRAST [CT] Stat Exams 08/22/20 10:01 Completed ABG [ARTERIAL BLOOD GASES] Stat Lab 08/22/20 11:15 Completed ABG [ARTERIAL BLOOD GASES] Urgent Lab 08/22/20 13:18 Completed ACETAMINOPHEN Stat Lab 08/22/20 10:17 Completed CBC W DIFF Stat Lab 08/22/20 10:17 Completed CK (IN-HOUSE) [CK-Creatinine Phosphokinase] Stat Lab 08/22/20 10:44 Completed CMP Routine Lab 08/22/20 10:17 Completed CULTURE,URINE Stat Lab 08/22/20 10:17 Received ETHYL ALCOHOL Stat Lab 08/22/20 10:17 Completed LIPASE Routine Lab 08/22/20 10:17 Completed Lactic Acid Stat Lab 08/22/20 10:17 Completed Lactic Acid Urgent Lab 08/22/20 11:25 Completed PROTIME WITH INR Stat Lab 08/22/20 10:17 Completed SALICYLATE Stat Lab 08/22/20 10:17 Completed TROPONIN Q3H Lab 08/22/20 10:17 Completed TROPONIN Q3H Lab 08/22/20 13:11 Completed TROPONIN Q3H Lab 08/22/20 16:15 Ordered TROPONIN Q3H Lab 08/22/20 19:15 Ordered TROPONIN Q3H Lab 08/22/20 22:15 Ordered UA W/RFX UR CULTURE Stat Lab 08/22/20 10:17 Completed Urine Triage Profile Stat Lab 08/22/20 10:17 Completed Intubate Patient STAT RT 08/22/20 12:49 Active Vent Settings [Ventilator Management] STAT RT 08/22/20 12:49 Active Medication Summary Generic Name Dose Route Start Last Admin Trade Name Freq PRN Reason Stop Dose Admin Sodium Chloride 1,000 mls @ 100 mls/hr 08/22/20 10:15 08/22/20 10:46 Sodium Chloride 0.9% 1000 Ml IV 09/21/20 10:14 100 mls/hr .Q10H PASTOR Administration Discontinued Medications Generic Name Dose Route Start Last Admin Trade Name Zaynab PRN Reason Stop Dose Admin Fentanyl Citrate Confirm 08/22/20 12:34 Fentanyl 500 Mcg/10 Ml Vial Administered 08/22/20 12:35 Dose 1,500 mcg IV .STK-MED ONE Propofol Confirm 08/22/20 12:26 Propofol 1000 Mg/100 Ml Bottle Administered 08/22/20 12:27 Dose 100 mls @ ud IV .STK-MED ONE Sodium Chloride Confirm 08/22/20 12:35 Sodium Chloride 0.9% 150 Ml Administered 08/22/20 12:36 Dose 150 mls @ ud IV .STK-MED ONE Ondansetron HCl 4 mg 08/22/20 12:02 08/22/20 12:00 Zofran 4 Mg/2 Ml Vial IV 08/22/20 12:03 4 mg STAT ONE Administration Ondansetron HCl Confirm 08/22/20 12:03 Zofran 4 Mg/2 Ml Vial Administered 08/22/20 12:04 Dose 4 mg .ROUTE .STK-MED ONE Lab/Rad Data: Laboratory Result Diagrams 08/22/20 10:17 08/22/20 10:17 Laboratory Results 08/22/20 08/22/20 08/22/20 Range/Units 13:18 13:11 11:25 WBC (4.0-10.5) K/mm3 RBC (4.1-5.6) M/mm3 Hgb (12.5-18.0) gm/dl Hct (42-50) % MCV (78-100) fl MCH (26-32) pg MCHC (32-36) g/dl RDW (11.5-14.0) % Plt Count (150-450) K/mm3 MPV (7.5-11.0) fl Gran % (36.0-66.0) % Eos # (Auto) (0-0.5) Absolute Lymphs (auto) (1.0-4.6) Absolute Monos (auto) (0.0-1.3) Lymphocytes % (24.0-44.0) % Monocytes % (0.0-12.0) % Eosinophils % (0.00-5.0) % Basophils % (0.0-0.4) % Absolute Granulocytes (1.4-6.9) Basophils # (0-0.4) PT (8.83-12.87) SECONDS INR (0.8-3.0) Puncture Site RIGHT RADIAL pCO2 55 H (35-45) mmHg pO2 244 H* (75-100) mmHg Base Excess -1.1 (-2.0-2.0) O2 Saturation 96.4 (94-100) g/dF ABG pH 7.29 L (7.35-7.45) ABG HCO3 26.4 (22-28) ABG O2 Sat (Measured) 100.0 (95-100) % Mohit Test NOT APPLICABLE A-a Gradient 400 a/A Ratio 0.38 Hemoglobin 14.1 Carboxyhemoglobin 2.5 (0.0-6.9) % THgb Methemoglobin 1.2 L (1.4-1.5) % Temperature 37.0 C POC O2 Flow Rate 100 % Vent Mode A/C Tidal Volume 500 cc PEEP 5.0 cmH2O Sodium (137-145) mmol/L Potassium 4.0 (3.5-5.1) mmol/L Chloride (98-107) mmol/L Carbon Dioxide (22-30) mmol/L Anion Gap (5-15) MEQ/L BUN (9-20) mg/dL Creatinine (0.66-1.25) mg/dL Estimated GFR ML/MIN Glucose (74-106) mg/dL Lactic Acid 1.9 (0.4-2.0) Calcium (8.4-10.2) mg/dL Total Bilirubin (0.2-1.3) mg/dL AST (17-59) U/L ALT (0-50) U/L Alkaline Phosphatase (38-126) U/L Creatine Kinase (55-170) U/L Troponin I < 0.012 (0.000-0.034) ng/mL Serum Total Protein (6.3-8.2) g/dL Albumin (3.5-5.0) g/dL Lipase (23-300) U/L Urine Color (YELLOW) Urine Appearance (CLEAR) Urine pH (5-6) Ur Specific Sieper (1.005-1.025) Urine Protein (Negative) Urine Ketones (NEGATIVE) Urine Blood (0-5) Tiago/ul Urine Nitrite (NEGATIVE) Urine Bilirubin (NEGATIVE) Urine Urobilinogen (0-1) mg/dL Ur Leukocyte Esterase (NEGATIVE) Urine WBC (Auto) (0-5) /HPF Urine RBC (Auto) (0-2) /HPF U Hyaline Cast (Auto) (0-2) /LPF U Epithel Cells (Auto) (FEW) /HPF Urine Bacteria (Auto) (NEGATIVE) /HPF Urine Mucus (Auto) (NEGATIVE) /HPF Urine Culture Reflexed (NO) Urine Glucose (NEGATIVE) mg/dL Salicylates (2-20) mg/dL Urine Opiates Level (NEGATIVE) Ur Methadone (NEGATIVE) Acetaminophen (10-30) ug/ml Urine Barbiturates (NEGATIVE) Ur Phencyclidine (PCP) (NEGATIVE) Urine Amphetamine (NEGATIVE) U Benzodiazepine Level (NEGATIVE) Urine Cocaine (NEGATIVE) Urine Marijuana (THC) (NEGATIVE) Ethyl Alcohol (0-10) mg/dL 08/22/20 08/22/20 08/22/20 Range/Units 11:15 10:44 10:17 WBC (4.0-10.5) K/mm3 RBC (4.1-5.6) M/mm3 Hgb (12.5-18.0) gm/dl Hct (42-50) % MCV (78-100) fl MCH (26-32) pg MCHC (32-36) g/dl RDW (11.5-14.0) % Plt Count (150-450) K/mm3 MPV (7.5-11.0) fl Gran % (36.0-66.0) % Eos # (Auto) (0-0.5) Absolute Lymphs (auto) (1.0-4.6) Absolute Monos (auto) (0.0-1.3) Lymphocytes % (24.0-44.0) % Monocytes % (0.0-12.0) % Eosinophils % (0.00-5.0) % Basophils % (0.0-0.4) % Absolute Granulocytes (1.4-6.9) Basophils # (0-0.4) PT (8.83-12.87) SECONDS INR (0.8-3.0) Puncture Site RIGHT BRACHIAL pCO2 38 (35-45) mmHg pO2 84 (75-100) mmHg Base Excess -2.3 L (-2.0-2.0) O2 Saturation 91.8 L (94-100) g/dF ABG pH 7.38 (7.35-7.45) ABG HCO3 22.5 (22-28) ABG O2 Sat (Measured) 97.0 (95-100) % Mohit Test NOT APPLICABLE A-a Gradient 68 a/A Ratio 0.55 Hemoglobin 14.6 Carboxyhemoglobin 4.3 (0.0-6.9) % THgb Methemoglobin 1.0 L (1.4-1.5) % Temperature 37.0 C POC O2 Flow Rate 28 % Vent Mode Tidal Volume cc PEEP cmH2O Sodium (137-145) mmol/L Potassium 3.9 (3.5-5.1) mmol/L Chloride (98-107) mmol/L Carbon Dioxide (22-30) mmol/L Anion Gap (5-15) MEQ/L BUN (9-20) mg/dL Creatinine (0.66-1.25) mg/dL Estimated GFR ML/MIN Glucose (74-106) mg/dL Lactic Acid (0.4-2.0) Calcium (8.4-10.2) mg/dL Total Bilirubin (0.2-1.3) mg/dL AST (17-59) U/L ALT (0-50) U/L Alkaline Phosphatase (38-126) U/L Creatine Kinase 66 (55-170) U/L Troponin I (0.000-0.034) ng/mL Serum Total Protein (6.3-8.2) g/dL Albumin (3.5-5.0) g/dL Lipase (23-300) U/L Urine Color (YELLOW) Urine Appearance (CLEAR) Urine pH (5-6) Ur Specific Sieper (1.005-1.025) Urine Protein (Negative) Urine Ketones (NEGATIVE) Urine Blood (0-5) Tiago/ul Urine Nitrite (NEGATIVE) Urine Bilirubin (NEGATIVE) Urine Urobilinogen (0-1) mg/dL Ur Leukocyte Esterase (NEGATIVE) Urine WBC (Auto) (0-5) /HPF Urine RBC (Auto) (0-2) /HPF U Hyaline Cast (Auto) (0-2) /LPF U Epithel Cells (Auto) (FEW) /HPF Urine Bacteria (Auto) (NEGATIVE) /HPF Urine Mucus (Auto) (NEGATIVE) /HPF Urine Culture Reflexed (NO) Urine Glucose (NEGATIVE) mg/dL Salicylates < 1.0 L (2-20) mg/dL Urine Opiates Level (NEGATIVE) Ur Methadone (NEGATIVE) Acetaminophen < 10 L (10-30) ug/ml Urine Barbiturates (NEGATIVE) Ur Phencyclidine (PCP) (NEGATIVE) Urine Amphetamine (NEGATIVE) U Benzodiazepine Level (NEGATIVE) Urine Cocaine (NEGATIVE) Urine Marijuana (THC) (NEGATIVE) Ethyl Alcohol 27 H (0-10) mg/dL 08/22/20 08/22/20 08/22/20 Range/Units 10:17 10:17 10:17 WBC (4.0-10.5) K/mm3 RBC (4.1-5.6) M/mm3 Hgb (12.5-18.0) gm/dl Hct (42-50) % MCV (78-100) fl MCH (26-32) pg MCHC (32-36) g/dl RDW (11.5-14.0) % Plt Count (150-450) K/mm3 MPV (7.5-11.0) fl Gran % (36.0-66.0) % Eos # (Auto) (0-0.5) Absolute Lymphs (auto) (1.0-4.6) Absolute Monos (auto) (0.0-1.3) Lymphocytes % (24.0-44.0) % Monocytes % (0.0-12.0) % Eosinophils % (0.00-5.0) % Basophils % (0.0-0.4) % Absolute Granulocytes (1.4-6.9) Basophils # (0-0.4) PT 12.9 H (8.83-12.87) SECONDS INR 1.14 (0.8-3.0) Puncture Site pCO2 (35-45) mmHg pO2 (75-100) mmHg Base Excess (-2.0-2.0) O2 Saturation (94-100) g/dF ABG pH (7.35-7.45) ABG HCO3 (22-28) ABG O2 Sat (Measured) (95-100) % Mohit Test A-a Gradient a/A Ratio Hemoglobin Carboxyhemoglobin (0.0-6.9) % THgb Methemoglobin (1.4-1.5) % Temperature C POC O2 Flow Rate % Vent Mode Tidal Volume cc PEEP cmH2O Sodium 131 L (137-145) mmol/L Potassium 3.5 (3.5-5.1) mmol/L Chloride 98 (98-107) mmol/L Carbon Dioxide 18 L (22-30) mmol/L Anion Gap 18.2 H (5-15) MEQ/L BUN 9 (9-20) mg/dL Creatinine 1.31 H (0.66-1.25) mg/dL Estimated GFR > 60.0 ML/MIN Glucose 108 H (74-106) mg/dL Lactic Acid 2.7 H (0.4-2.0) Calcium 9.3 (8.4-10.2) mg/dL Total Bilirubin 0.40 (0.2-1.3) mg/dL AST 27 (17-59) U/L ALT 9 (0-50) U/L Alkaline Phosphatase 70 (38-126) U/L Creatine Kinase (55-170) U/L Troponin I < 0.012 (0.000-0.034) ng/mL Serum Total Protein 6.7 (6.3-8.2) g/dL Albumin 4.2 (3.5-5.0) g/dL Lipase 64 (23-300) U/L Urine Color (YELLOW) Urine Appearance (CLEAR) Urine pH (5-6) Ur Specific Sieper (1.005-1.025) Urine Protein (Negative) Urine Ketones (NEGATIVE) Urine Blood (0-5) Tiago/ul Urine Nitrite (NEGATIVE) Urine Bilirubin (NEGATIVE) Urine Urobilinogen (0-1) mg/dL Ur Leukocyte Esterase (NEGATIVE) Urine WBC (Auto) (0-5) /HPF Urine RBC (Auto) (0-2) /HPF U Hyaline Cast (Auto) (0-2) /LPF U Epithel Cells (Auto) (FEW) /HPF Urine Bacteria (Auto) (NEGATIVE) /HPF Urine Mucus (Auto) (NEGATIVE) /HPF Urine Culture Reflexed (NO) Urine Glucose (NEGATIVE) mg/dL Salicylates (2-20) mg/dL Urine Opiates Level (NEGATIVE) Ur Methadone (NEGATIVE) Acetaminophen (10-30) ug/ml Urine Barbiturates (NEGATIVE) Ur Phencyclidine (PCP) (NEGATIVE) Urine Amphetamine (NEGATIVE) U Benzodiazepine Level (NEGATIVE) Urine Cocaine (NEGATIVE) Urine Marijuana (THC) (NEGATIVE) Ethyl Alcohol (0-10) mg/dL 08/22/20 08/22/20 08/22/20 Range/Units 10:17 10:17 10:17 WBC 10.1 (4.0-10.5) K/mm3 RBC 4.48 (4.1-5.6) M/mm3 Hgb 13.8 (12.5-18.0) gm/dl Hct 40.9 L (42-50) % MCV 91.3 (78-100) fl MCH 30.8 (26-32) pg MCHC 33.7 (32-36) g/dl RDW 13.1 (11.5-14.0) % Plt Count 317 (150-450) K/mm3 MPV 8.3 (7.5-11.0) fl Gran % 84.3 H (36.0-66.0) % Eos # (Auto) 0.01 (0-0.5) Absolute Lymphs (auto) 1.11 (1.0-4.6) Absolute Monos (auto) 0.45 (0.0-1.3) Lymphocytes % 11.0 L (24.0-44.0) % Monocytes % 4.4 (0.0-12.0) % Eosinophils % 0.1 (0.00-5.0) % Basophils % 0.2 (0.0-0.4) % Absolute Granulocytes 8.54 H (1.4-6.9) Basophils # 0.02 (0-0.4) PT (8.83-12.87) SECONDS INR (0.8-3.0) Puncture Site pCO2 (35-45) mmHg pO2 (75-100) mmHg Base Excess (-2.0-2.0) O2 Saturation (94-100) g/dF ABG pH (7.35-7.45) ABG HCO3 (22-28) ABG O2 Sat (Measured) (95-100) % Mohit Test A-a Gradient a/A Ratio Hemoglobin Carboxyhemoglobin (0.0-6.9) % THgb Methemoglobin (1.4-1.5) % Temperature C POC O2 Flow Rate % Vent Mode Tidal Volume cc PEEP cmH2O Sodium (137-145) mmol/L Potassium (3.5-5.1) mmol/L Chloride (98-107) mmol/L Carbon Dioxide (22-30) mmol/L Anion Gap (5-15) MEQ/L BUN (9-20) mg/dL Creatinine (0.66-1.25) mg/dL Estimated GFR ML/MIN Glucose (74-106) mg/dL Lactic Acid (0.4-2.0) Calcium (8.4-10.2) mg/dL Total Bilirubin (0.2-1.3) mg/dL AST (17-59) U/L ALT (0-50) U/L Alkaline Phosphatase (38-126) U/L Creatine Kinase (55-170) U/L Troponin I (0.000-0.034) ng/mL Serum Total Protein (6.3-8.2) g/dL Albumin (3.5-5.0) g/dL Lipase (23-300) U/L Urine Color YELLOW (YELLOW) Urine Appearance SLIGHTLY CLOUDY (CLEAR) Urine pH 5.0 (5-6) Ur Specific Sieper 1.010 (1.005-1.025) Urine Protein 30 (Negative) Urine Ketones NEGATIVE (NEGATIVE) Urine Blood MODERATE (0-5) Tiago/ul Urine Nitrite NEGATIVE (NEGATIVE) Urine Bilirubin NEGATIVE (NEGATIVE) Urine Urobilinogen NEGATIVE (0-1) mg/dL Ur Leukocyte Esterase NEGATIVE (NEGATIVE) Urine WBC (Auto) 3-5 (0-5) /HPF Urine RBC (Auto) 6-10 (0-2) /HPF U Hyaline Cast (Auto) 11-25 (0-2) /LPF U Epithel Cells (Auto) RARE (FEW) /HPF Urine Bacteria (Auto) RARE (NEGATIVE) /HPF Urine Mucus (Auto) SLIGHT (NEGATIVE) /HPF Urine Culture Reflexed ORDERED SEPARATELY (NO) Urine Glucose NEGATIVE (NEGATIVE) mg/dL Salicylates (2-20) mg/dL Urine Opiates Level NEGATIVE (NEGATIVE) Ur Methadone NEGATIVE (NEGATIVE) Acetaminophen (10-30) ug/ml Urine Barbiturates NEGATIVE (NEGATIVE) Ur Phencyclidine (PCP) NEGATIVE (NEGATIVE) Urine Amphetamine NEGATIVE (NEGATIVE) U Benzodiazepine Level NEGATIVE (NEGATIVE) Urine Cocaine NEGATIVE (NEGATIVE) Urine Marijuana (THC) NEGATIVE (NEGATIVE) Ethyl Alcohol (0-10) mg/dL - Progress Progress: improved Progress Note: Patient in our ED. Patient began to vomit. Patient's breathing became agonal appearing. Patient intubated. 8.0 ET tube placed. Confirmation via colorimetry auscultation chest rise oxygenation and x-ray. Case discussed with Dr. Pena covering Dr. Zhao. We both decided that patient should be transferred for higher level of care. Mother at bedside. Mother updated on plan of care. We will transfer patient at this time. We contacted [facility]. [facility] has no ICU beds. We contacted [facility]. Case discussed with Dr. Gooden hospitalist who accepts admission to ICU. We are currently awaiting a bed assignment. Nadya ochoa notified to decrease FiO2 on ventilator as PO2 is 244. 08/22/20 12:40 08/22/20 15:13 08/22/20 15:56 FiO2 decreased to 60%. Respiratory rate increased to 18. Will see patient in: other Counseled pt/family regarding: lab results, diagnosis, rad results - Departure Departure Disposition: Transfer Clinical Impression: Hypothermia, Altered mental status, Hyponatremia, Acute renal injury, Hematuria Condition: Stable Critical Care Time: No Referrals: EZIO ZHAO [Primary Care Provider] -
[2020-08-22] MEDS ORDERED: Sodium Chloride 0.9% 1000 ML 1,000 ML IV SCH (10:15)
[2020-08-22 10:23] LABS: Absolute Neutrophil Ct (ANC) 8.54 (1.4-6.9); BASOPHIL % 0.2 % (0.0-0.4); Basophil (Absolute #) 0.02 (0-0.4); Eosinophil % 0.1 % (0.00-5.0); Eosinophil (Absolute #) 0.01 (0-0.5); Hematocrit 40.9 % (42-50); Hemoglobin 13.8 gm/dl (12.5-18.0); Lymphocyte (Absolute #) 1.11 (1.0-4.6); Mean Cell Volume 91.3 fl (78-100); Mean Corpuscular Hemoglobin 30.8 pg (26-32); Mean Corpuscular Hgb Concent. 33.7 g/dl (32-36); Mean Platelet Volume 8.3 fl (7.5-11.0); Monocyte (Absolute #) 0.45 (0.0-1.3); Monocytes % 4.4 % (0.0-12.0); Neutrophil % 84.3 % (36.0-66.0); Platelet Count 317 K/mm3 (150-450); Red Blood Count 4.48 M/mm3 (4.1-5.6); Red Cell Distribution Width 13.1 % (11.5-14.0); White Blood Count 10.1 K/mm3 (4.0-10.5)
[2020-08-22 10:26] LABS: Appearance SLIGHTLY CLOUDY (CLEAR); Bacteria RARE /HPF (NEGATIVE); Bilirubin NEGATIVE (NEGATIVE); Blood MODERATE Ery/ul (0-5); Epithelial Cells RARE /HPF (FEW); Glucose NEGATIVE (NEGATIVE); Ketones NEGATIVE (NEGATIVE); Leukocyte Esterase NEGATIVE (NEGATIVE); Mucus SLIGHT /HPF (NEGATIVE); Nitrite NEGATIVE (NEGATIVE); Protein,Urine Dip 30 (Negative); Urobilinogen NEGATIVE mg/dL (0-1)
[2020-08-22 10:34] LABS: INR 1.14 (0.8-3.0); PROTIME 12.9 SECONDS (8.83-12.87)
--- NOTE | 2020-08-22 10:42 | XRAY ---
Indication: Found unresponsive. Comparison: None Portable chest demonstrates normal heart, lungs, and bony thorax with a few incidental calcified granulomas.
--- NOTE | 2020-08-22 10:44 | XRAY ---
Indication: Found unresponsive. Uncooperative. Multiple contiguous axial images obtained through the head without contrast. Comparison: None Several images slightly degraded by motion artifact. Age-appropriate global atrophy. No gross acute intracranial hemorrhage, abnormal extra-axial fluid collection, or mass effect. Fourth ventricle is midline without hydrocephalus. Bony calvarium grossly intact. Visualized paranasal sinuses and mastoid air cells are clear. Impression: Motion artifact. No gross acute intracranial abnormalities.
[2020-08-22] MEDS ORDERED: Sodium Chloride 0.9% 1000 ML 1,000 ML ONE (10:45)
[2020-08-22 10:48] LABS: ACETAMINOPHEN < 10 ug/ml (10-30); ETHYL ALCOHOL 27 mg/dL (0-10); SALICYLATE < 1.0 mg/dL (2-20)
--- NOTE | 2020-08-22 10:48 | XRAY ---
Indication: Found unresponsive. Uncooperative. Multiple contiguous axial images obtained through the cervical spine. Sagittal and coronal reformatted images obtained. Comparison: None Several images slightly degraded by motion artifact. Axial images negative for acute fracture, suspicious bony lesions, or spinal canal stenosis. Minimal C5-C7 degenerative endplate spurring. Facets are symmetric. Sagittal and coronal reformatted images demonstrates lordotic straightening, positional versus paraspinal spasm. Minimal C6-C7 degenerative disc space narrowing. No acute compression fracture, subluxation, or jumped facet. Visualized noncontrasted soft tissues including lung apices are unremarkable. Impression: 1. Motion artifact. 2. Lordotic straightening, positional versus paraspinal spasm. No gross acute fracture or subluxation. 3. Minimal C5-C7 degenerative changes.
[2020-08-22 10:57] LABS: ALBUMIN 4.2 g/dL (3.5-5.0); ALKALINE PHOSPHATASE 70 U/L (38-126); ANION GAP 18.2 MEQ/L (5-15); Amphetamine,Urine NEGATIVE (NEGATIVE); BLOOD UREA NITROGEN 9 mg/dL (9-20); Barbiturate,Urine NEGATIVE (NEGATIVE); Benzodiazepine,Urine NEGATIVE (NEGATIVE); CHLORIDE 98 mmol/L (98-107); Calcium 9.3 mg/dL (8.4-10.2); Carbon Dioxide 18 mmol/L (22-30); Cocaine,Urine NEGATIVE (NEGATIVE); Creatinine 1 1.31 mg/dL (0.66-1.25); EST GLOMERULAR FILTRATION RATE > 60.0 ML/MIN; Glucose 108 mg/dL (74-106); LIPASE 64 U/L (23-300); Methadone,Urine NEGATIVE (NEGATIVE); Opiate,Urine NEGATIVE (NEGATIVE); PCP,Urine NEGATIVE (NEGATIVE); Potassium 3.5 mmol/L (3.5-5.1); SGOT/AST 27 U/L (17-59); SGPT/ALT 9 U/L (0-50); SODIUM 131 mmol/L (137-145); THC,Urine NEGATIVE (NEGATIVE); TROPONIN < 0.012 ng/mL (0.000-0.034); Total Protein 6.7 g/dL (6.3-8.2)
[2020-08-22 11:21] LABS: A-aADO2 68; ABG HEMOGLOBIN 14.6; ABG POTASSIUM 3.9 (3.5-5.1); ARTERIAL BLOOD GAS BASE EXCESS -2.3 (-2.0-2.0); ARTERIAL BLOOD GAS FIO2 28 %; ARTERIAL BLOOD GAS PCO2 38 mmHg (35-45); ARTERIAL BLOOD GAS PO2 84 mmHg (75-100); ARTERIAL BLOOD GAS pH 7.38 (7.35-7.45); CARBOXYHEMOGLOBIN 4.3 % THgb (0.0-6.9); HCO3- 22.5 (22-28); HGB O2 SAT 91.8 g/dF (94-100)
[2020-08-22 11:22] LABS: ABG SITE RIGHT BRACHIAL
[2020-08-22] MEDS ORDERED: Zofran 4 MG/2 ML VIAL IV ONE (12:02)
[2020-08-22] MEDS ORDERED: Zofran 4 MG/2 ML VIAL ONE (12:03)
[2020-08-22] MEDS ORDERED: Propofol 1000 mg/100 ml Bottle 100 ML IV ONE (12:26)
[2020-08-22] MEDS ORDERED: FENTANYL 500 MCG/10 ML VIAL IV ONE (12:34)
[2020-08-22] MEDS ORDERED: Sodium Chloride 0.9% 150 ML 150 ML IV ONE (12:35)
--- NOTE | 2020-08-22 12:58 | XRAY ---
Indication: Endotracheal tube adjustment. Comparison: Taken earlier in the day. Endotracheal tube has been withdrawn with tip now 3 cm above the alesia. Stable NG tube tip in the stomach. Remaining heart and lungs are unremarkable.
--- NOTE | 2020-08-22 12:58 | XRAY ---
Indication: Tube placement. Comparison: August 22, 2020. Portable chest demonstrates new NG tube tip in the stomach and new endotracheal tube tip in the right mainstem bronchus. Remaining heart, lungs, and bony thorax are unremarkable.
[2020-08-22 13:31] LABS: A-aADO2 400; ABG HEMOGLOBIN 14.1; ABG SITE RIGHT RADIAL; ARTERIAL BLD GAS TIDAL VOLUME 500 cc; ARTERIAL BLOOD GAS BASE EXCESS -1.1 (-2.0-2.0); ARTERIAL BLOOD GAS FIO2 100 %; ARTERIAL BLOOD GAS PCO2 55 mmHg (35-45); ARTERIAL BLOOD GAS PO2 244 mmHg (75-100); ARTERIAL BLOOD GAS VENT MODE A/C; ARTERIAL BLOOD GAS pH 7.29 (7.35-7.45); CARBOXYHEMOGLOBIN 2.5 % THgb (0.0-6.9); HCO3- 26.4 (22-28); HGB O2 SAT 96.4 g/dF (94-100); Methhemoglobin 1.2 % (1.4-1.5)
[2020-08-22 15:59] VITALS: BP 149/100; PULSE 90; O2SAT 97
== END 2020-08-22 16:00 | disposition short-term general hospital (02) ==
LOC: ED 09:57
DX: T68.XXXA Hypothermia, initial encounter (principal); R41.82 Altered mental status, unspecified; E87.1 Hypo-osmolality and hyponatremia; N17.9 Acute kidney failure, unspecified; R31.9 Hematuria, unspecified; I10 Essential (primary) hypertension; Z79.899 Other long term (current) drug therapy
CPT/HCPCS: 31500; 36000; 36415; 36600; 51702; 70450; 71045; 72125; 80053; 80307; 81001; 82375; 82550; 82803; 83605; 83690; 84484; 85025; 85610; 87086; 93005; 94002; 96360; 96374; 99285; G0480; J2405; J2704; J3010

== ENCOUNTER 2022-06-19 21:15 | Emergency (ER) | payer OTHER ==
[2022-06-19 21:52] VITALS: O2SAT 99
[2022-06-20] MEDS ORDERED: Rocephin 1000 MG INJ IM ONE (00:27)
[2022-06-20] MEDS ORDERED: Rocephin 1000 MG INJ ONE (00:31)
--- NOTE | 2022-06-20 00:32 | ERPHSYRPT ---
- History of Present Illness Time Seen by Provider: 06/19/22 21:45 Source: patient Exam Limitations: no limitations Patient Subjective Stated Complaint: pt states he has an abscess on his back that has gotten more painful and larger today Triage Nursing Assessment: pt alert and oriented, answers questions approp. pt ambulatory with steady gait noted. respirations nonlabored. skin warm and dry. raised red area to rt mid back approx 4x4 cm Physician History: Patient a 42-year-old male presents emergency department for evaluation of abscess to his upper back that has been getting progressively worse. Patient unable to sleep on his back due to the abscess. The area is now red and tender. No trauma. No fever. No nausea vomiting or diaphoresis. Pain described as an ache that is localized. No radiation. Pain worse with palpation or pressure on the abscess area. Pain improved with rest. Patient denies a history of the same. Patient's brother at bedside. They voiced no other complaints or concerns at this time. Portions of this note were created with voice recognition technology. There may be grammatical, spelling, punctuation or sound alike errors Timing/Duration: day(s) (2 days) Severity: moderate Modifying Factors: Improves With: nothing, other (Patient is involved area.) Associated Symptoms: denies symptoms Allergies/Adverse Reactions: No Known Drug Allergies Allergy (Verified 06/19/22 21:51) Home Medications: Valbenazine Tosylate [Ingrezza] 1 ea PO DAILY 05/09/20 [History] Fluoxetine HCl 20 mg [Prozac 20 MG] 1 ea DAILY 08/22/20 [History] Ziprasidone HCl [Geodon] 1 ea DAILY 08/22/20 [History] Hx Tetanus, Diphtheria Vaccination/Date Given: No Hx Influenza Vaccination/Date Given: No Hx Pneumococcal Vaccination/Date Given: No Immunizations Up to Date: No Travel Risk - International Travel Have you traveled outside of the country in past 3 weeks: No - Coronavirus Screening Are you exhibiting any of the following symptoms?: No Close contact with a COVID-19 positive Pt in past 14-21 Days: No - Vaccine Status Have you recieved a Covid-19 vaccination: Yes Rn Security: Moderna - Vaccination Dates Date of 2cond Vaccination (if applicable): 2020 - Review of Systems Constitutional: No Symptoms, No Fever, No Chills Eyes: No Symptoms Ears, Nose, & Throat: No Symptoms Respiratory: No Symptoms, No Cough, No Dyspnea Cardiac: No Symptoms, No Chest Pain, No Edema, No Syncope Abdominal/Gastrointestinal: No Symptoms, No Abdominal Pain, No Nausea, No Vomiting, No Diarrhea Genitourinary Symptoms: No Symptoms, No Dysuria Musculoskeletal: No Symptoms, No Back Pain, No Neck Pain Skin: No Symptoms, No Rash Neurological: No Symptoms, No Dizziness, No Focal Weakness, No Sensory Changes Psychological: No Symptoms Endocrine: No Symptoms Hematologic/Lymphatic: No Symptoms Immunological/Allergic: No Symptoms All Other Systems: Reviewed and Negative - Past Medical History Pertinent Past Medical History: Yes Neurological History: No Pertinent History ENT History: No Pertinent History Cardiac History: Hypertension Respiratory History: No Pertinent History Endocrine Medical History: No Pertinent History Musculoskeletal History: No Pertinent History GI Medical History: Esophageal Disorder, GERD History: No Pertinent History Psycho-Social History: Anxiety, Depression Male Reproductive Disorders: No Pertinent History Other Medical History: states is seen for staff genetic counselor at the [facility] for depression - Past Surgical History Past Surgical History: Yes Neuro Surgical History: No Pertinent History Cardiac: No Pertinent History Respiratory: No Pertinent History Gastrointestinal: Hernia Repair Genitourinary: No Pertinent History Musculoskeletal: No Pertinent History Male Surgical History: No Pertinent History Other Surgical History: states " had tubes in my ears as a young child" - Social History Smoking Status: Current every day smoker How long have you smoked: 25 yrs Exposure to second hand smoke: Yes Drug Use: none Patient Lives Alone: No - Nursing Vital Signs Nursing Vital Signs: Initial Vital Signs Temperature 98.0 F 06/19/22 21:30 Pulse Rate 97 H 06/19/22 21:30 Respiratory Rate 18 06/19/22 21:30 Blood Pressure 156/88 06/19/22 21:30 O2 Sat by Pulse Oximetry 99 06/19/22 21:30 Pain Scale Pain Intensity 7 - Physical Exam General Appearance: no apparent distress, alert Eye Exam: PERRL/EOMI, eyes nml inspection Ears, Nose, Throat Exam: moist mucous membranes Neck Exam: normal inspection, non-tender, supple, full range of motion Respiratory Exam: normal breath sounds, lungs clear, airway intact, No respirato ry distress Cardiovascular Exam: regular rate/rhythm, normal heart sounds, normal peripheral pulses Gastrointestinal/Abdomen Exam: soft, normal bowel sounds, No tenderness, No mass Back Exam: normal inspection, normal range of motion, No CVA tenderness, No vertebral tenderness Extremity Exam: normal inspection, normal range of motion, pelvis stable Neurologic Exam: alert, oriented x 3, cooperative, normal mood/affect, sensation nml, No motor deficits Skin Exam: normal color, warm, dry, No rash Lymphatic Exam: No adenopathy SpO2 Interpretation: normal SpO2: 99 O2 Delivery: Room Air Procedures - Incision and Drainage Time of Procedure: 00:31 Timeout: Performed Site: Upper back Anesthesia: 1% Lidocaine cc's of anesthesia: 3 Blade Size: 11 I & D Procedure: betadine prep, culture obtained, gauze wick placed Results: large amount pus Progress: Patient tolerated procedure well. No intraprocedural postprocedural complications. - Course Nursing assessment & vital signs reviewed: Yes - Progress Progress: improved Progress Note: Please a 42-year-old male presents to our ED for evaluation of progressively worsening enlarging abscess to his upper back. The area started out as a boil. However he observed the area became significantly worse over the past couple days. Patient's problem is acute and progressive. No associated fever. Physical exam reveals a cellulitic area with fluctuant abscess. Abscess location is upper back. Complexity of problems addressed is low. Acute uncomplicated. No systemic manifestations. No critical care time. Patient served as independent historian. Patient's diagnosis is based on history and physical examination. Complexity of data reviewed and analyzed is none. No specialized testing ordered. I&D performed. Wound cultures obtained. Results pending. Risk of complication and or risk morbidity/mortality of patient management is moderate. Patient had incision and drainage of the abscess. Patient tolerated procedure well. Please see procedure note for details. The wound was packed with half-inch iodoform gauze. We will discharge patient home. Patient received a dose of intramuscular Rocephin. A prescription for Keflex forwarded to patient's pharmacy. Packing is to be removed in 48 hours. Patient will follow-up with his primary care physician Dr. Acevedo for reevaluation and removal of packing. Plan of care made based on decision making model. Time spent at discharge is approximately 15 minutes. Discharge diagnosis cellulitis/abscess. Vital stable. Brother at bedside. They voiced no other complaints or concerns at this time. Portions of this note were created with voice recognition technology. There may be grammatical, spelling, punctuation or sound alike errors 06/20/22 00:37 Counseled pt/family regarding: diagnosis, need for follow-up - Departure Departure Disposition: Home Clinical Impression: Abscess, Cellulitis Condition: Stable Critical Care Time: No Referrals: EZIO ACEVEDO [Primary Care Provider] - Follow up/PCP as directed Additional Instructions: Discharge/Care Plan TORSTEN PATHAK was seen on 06/20/22 in the Emergency Room. The patient was counseled regarding Diagnosis,Lab results, Imaging studies, need for follow up and when to return to the Emergency Room. Prescriptions given: Discharge Note I have spoken with the patient and/or caregivers. I have explained the patient's condition, diagnosis and treatment plan based on the information available to me at this time. I have answered the patient's and/or caregiver's questions and addressed any concerns. The patient and/or caregivers have as good understanding of the patient's diagnosis, condition and treatment plan as can be expected at this point. The vital signs have been stable. The patient's condition is stable and appropriate for discharge from the emergency department. The patient will pursue further outpatient evaluation with the primary care physician or other designated or consulting physician as outlined in the discharge instructions. The patient and/or caregivers are agreeable to this plan of care and follow-up instructions have been explained in detail. The patient and/or caregivers have received these instruction. The patient/and or caregivers are aware that any significant change in condition or worsening of symptoms should prompt an immediate return to this or the closest emergency department or call 911. Prescriptions: Cephalexin Mh 500 mg [Keflex 500 mg] 500 mg PO TID #21 cap
[2022-06-20 00:57] VITALS: BP 132/78; PULSE 78
== END 2022-06-20 00:56 | disposition home or self-care (01) ==
LOC: ED 21:15
DX: L02.212 Cutaneous abscess of back [any part, except buttock and flank] (principal); L03.312 Cellulitis of back [any part except buttock and flank]; I10 Essential (primary) hypertension; Z79.899 Other long term (current) drug therapy; Z72.0 Tobacco use
CPT/HCPCS: 10060; 87070; 87186; 96372; 99283; J0696

== ENCOUNTER 2023-03-04 10:13 | Day surgery (SDC) | payer OTHER ==
--- NOTE | 2023-03-04 09:19 | HP ---
DATE OF SURGERY: 03/04/2023 HISTORY OF PRESENT ILLNESS: The patient is a 44-year-old who in the past year and a half to two years enlarging infected back cyst in need of excision. PAST MEDICAL HISTORY: Anxiety, depression. PAST SURGICAL HISTORY: Hernia. MEDICATIONS: Fluoxetine. ALLERGIES: NKDA. FAMILY HISTORY: Negative in regards to this problem. SOCIAL HISTORY: Smokes one pack a day, drinks some beer denies abuse. REVIEW OF SYSTEMS: Twelve systems reviewed. No chest pain or palpitations. Other systems negative or noncontributory as above and per preadmission questionnaire. PHYSICAL EXAMINATION: Height 5'7". BMI 38.37. GENERAL: No acute distress. HEENT: Sclerae nonicteric. EOMI. Oral mucous membranes moist. NECK: No JVD. CHEST: Equal excursion, nonlabored breathing. CVS: Regular rate and rhythm. ABDOMEN: Soft. EXTREMITIES: No significant edema. NEURO: Alert, oriented, moving extremities symmetrically. PSYCH: Appropriate mood and affect. SKIN: Dry. IMPRESSION: Ruptured back cyst site. I feel the patient would benefit from excision. Risks and benefits explained in detail including but not limited to bleeding or infection, possibly requiring packing, risk of hematoma or seroma formation, risk of burning or numbness, risk of anesthesia, deep venous thrombosis, pulmonary embolism, pneumonia, aches and pains. Once we excise this this particular one will not return once he heals the wound but he could get another cyst or nodule adjacent to or elsewhere on his body. He understands and agrees to the planned procedure, will proceed with outpatient excision of recurrent infected ruptured back cyst site as an outpatient.
[2023-03-04 10:49] VITALS: RESP 18
[2023-03-04] MEDS ORDERED: Lactated Ringers 1,000 ML IV ONE (11:04)
[2023-03-04] MEDS ORDERED: CEFAZOLIN 2 GM-D5W BAG** 2 GM/50 ML ML IV ONE (11:04)
[2023-03-04] MEDS ORDERED: Lactated Ringers 1,000 ML IV SCH (11:30)
[2023-03-04] MEDS ORDERED: CEFAZOLIN 2 GM-D5W BAG** 2 GM/50 ML ML IV SCH (11:30)
[2023-03-04] MEDS ORDERED: Sensorcaine 0.25% 10 ML ONE (12:12)
[2023-03-04] MEDS ORDERED: Zemuron 100 MG/10 ML ONE (12:13)
[2023-03-04] MEDS ORDERED: SUBLIMAZE 100 MCG/2 ML ONE (12:13)
[2023-03-04] MEDS ORDERED: DIPRIVAN 200 MG/20 ML IV ONE (12:13)
[2023-03-04] MEDS ORDERED: Versed 2 MG/2 ML Injection ONE (12:13)
[2023-03-04] MEDS ORDERED: BRIDION 200MG/2ML IV ONE (13:11)
[2023-03-04] MEDS ORDERED: TORAdol 30 mg Injection ONE (13:14)
[2023-03-04 14:23] VITALS: BP 139/88; PULSE 69; TEMP 97.2; O2SAT 99
--- NOTE | 2023-03-05 08:07 | OP ---
SURGERY DATE/TIME: 03/04/2023 1230 PREOPERATIVE DIAGNOSIS: History of recent ruptured back cyst site. POSTOPERATIVE DIAGNOSIS: History of recent ruptured back cyst site. PROCEDURE: Excisional biopsy of ruptured back cyst site (approximately 4.5 cm with margins). SURGEON: Alessio Pabon M.D. ANESTHESIA: General. ESTIMATED BLOOD LOSS: Minimal. INDICATIONS: As noted above. Risks and benefits explained in detail but not limited to, consent obtained. DESCRIPTION OF PROCEDURE AND FINDINGS: The patient is taken to the operating room. General anesthesia induced, prepped and draped in sterile fashion in prone position and appropriate padding. Positioned per anesthesia and OR staff. The back is prepped and draped in usual sterile fashion. After official time out and no disagreement with planned procedure, marking out around the fluctuant indurated area dissection carried down to normal appearing subcutaneous tissue and to normal appearing underlying fascia. The specimen is passed off. It measured about 4.5 cm with margins, passed off for pathology. The area is dissected out to clean plane. It was felt worthwhile to try to close this. The flaps were then advanced back to the midline. Local advancement flaps were advanced back to the midline with interrupted 2-0 Vicryl in deep and superficial subcu bringing the flaps back to the midline. Skin is closed with 3-0 Vicryl in running subcuticular fashion with interrupted 3-0 Prolene used to reinforce the area in interrupted and vertical mattress fashion. Steri-Strips and sterile dressing applied. 0.25% Marcaine local had been injected around the area. The patient tolerated the procedure well. There were no immediate complications. Findings discussed with the family out in the waiting area.
== END 2023-03-04 14:27 | disposition home or self-care (01) ==
LOC: SDC 10:13
PROVIDERS: ATTEND Surgery
DX: L72.0 Epidermal cyst (principal)
CPT/HCPCS: J0690; J1885; J2250; J2704; J3010